=== PATIENT | female | born 1955 | race Caucasian/White ===

== ENCOUNTER 2019-07-12 08:27 | Day surgery (SDC) | payer BC ==
[~2019-07-12] VITALS: Ht 177.8 cm; Wt 117.8 kg
[2019-07-12] MEDS ORDERED: cefazolin/dext.iso 2gm/50ml 50 ML IV ONE (08:50)
[2019-07-12] MEDS ORDERED: LIDOcaine 1%/PF 5ML 10 MG/ML VIAL ONE (09:46)
[2019-07-12] MEDS ORDERED: heparin 1,000unit/ml 10ml vial 10 ML ONE (09:46)
[2019-07-12] MEDS ORDERED: midazolam 2 mg/2 ml injection ONE (09:46)
[2019-07-12] MEDS ORDERED: fentaNYL/PF 50MCG/1 ML 2ML syringe ONE (09:47)
[2019-07-12] MEDS ORDERED: DILT360C38 (09:48)
[2019-07-12] MEDS ORDERED: PHO667C (09:48)
[2019-07-12 09:50] LABS: BASOPHILS # (AUTO) 0.1 X10'3 (0-0.2); EOSINOPHILS # (AUTO) 0.2 X10'3 (0-0.9); HEMOGLOBIN 11.9 g/dl (12.0-16.0); LYMPHOCYTES # (AUTO) 2.6 X10'3 (1.1-4.8); MONOCYTES # (AUTO) 0.5 X10'3 (0-0.9)
[2019-07-12 09:52] LABS: BASOPHILS % (AUTO) 0.8 % (0-1); EOSINOPHILS % (AUTO) 2.1 % (0-6); HEMATOCRIT 35.4 % (35.0-45.0); LYMPHOCYTES % (AUTO) 29.7 % (21-51); MEAN CORPUSCULAR HEMOGLOBIN 32.4 PG (27.0-31.0); MEAN CORPUSCULAR HGB CONC 33.7 g/dL (33.0-36.5); MEAN CORPUSCULAR VOLUME 96.3 FL (78-98); MEAN PLATELET VOLUME 7.2 FL (7.4-10.4); MONOCYTES % (AUTO) 5.7 % (2-12); NEUTROPHILS # (AUTO) 5.3 X10'3 (1.8-7.7); NEUTROPHILS % (AUTO) 61.7 % (42-75); PLATELET COUNT 317 X10'3 (140-440); RED BLOOD COUNT 3.68 X10'6 (4.20-5.60); RED CELL DISTRIBUTION WIDTH 13.9 % (11.5-14.5); WHITE BLOOD COUNT 8.6 X10'3 (4.5-11.0)
[2019-07-12] MEDS ORDERED: LANTUS SUBCUT (09:53)
[2019-07-12] MEDS ORDERED: ALBU18HF2 INH (09:53)
[2019-07-12] MEDS ORDERED: hydrALAZINE 20mg/ml inj. IV ONE (10:38)
--- NOTE | 2019-07-12 10:57 | NUR ---
Rec patient back from IR via gurney, awake alert and oriented. TDC in place to right chest with clean dry intact dressing. Given sandwich and drink
[2019-07-12 11:00] VITALS: BP 192/82
[2019-07-12 11:15] VITALS: BP 186/80
[2019-07-12 11:30] VITALS: BP 130/100
[2019-07-12 11:50] VITALS: BP 176/79
[2019-07-12 12:37] VITALS: BP 192/82
== END 2019-07-12 12:10 | disposition home or self-care (01) ==
LOC: SSTAY O 08:27
PROVIDERS: ATTEND Radiology Diagnostic Radiology
DX: T82.49XA Other complication of vascular dialysis catheter, initial encounter (principal); E11.22 Type 2 diabetes mellitus with diabetic chronic kidney disease; I12.0 Hypertensive chronic kidney disease with stage 5 chronic kidney disease or end stage renal disease; N18.6 End stage renal disease; E78.00 Pure hypercholesterolemia, unspecified; Z98.890 Other specified postprocedural states; Z88.2 Allergy status to sulfonamides; Z88.5 Allergy status to narcotic agent; Z79.899 Other long term (current) drug therapy; Y83.8 Other surgical procedures as the cause of abnormal reaction of the patient, or of later complication, without mention of misadventure at the time of the procedure; Y92.89 Other specified places as the place of occurrence of the external cause
CPT/HCPCS: 36415; 36581; 77001; 85025; 99152; C1750; C1769; J0360; J1644; J2250; J3010; 76937; A9270